=== PATIENT | male | born 1965 ===

== ENCOUNTER 2023-02-28 08:00 | Outpatient (CLI) | payer BC, OTHER ==
--- NOTE | 2023-03-01 12:37 | XRAY Report ---
PROCEDURE: Shoulder 2+V LT INDICATIONS: LEFT SHOULDER SPRAIN TECHNIQUE: 3 views of the shoulder were acquired. COMPARISON: None. FINDINGS: Bones: No fractures or dislocations. No suspicious bony lesions. Visualized ribs appear intact. Moderate degenerative changes of the left acromioclavicular and glenohumeral joints. Soft tissues: No suspicious soft tissue calcifications. Small amount of soft tissue calcifications overlying the superolateral left humeral head. The visualized lungs are within normal limits. IMPRESSION: No acute bony abnormality. Moderate osteoarthrosis of the left acromioclavicular and glenohumeral joints. Soft tissue calcifications over the superolateral left humeral head which may be secondary to chronic calcific rotator cuff tendinopathy. Reviewed by: Eddie James MD on 03/01/2023 12:36 PM PST Approved by: Eddie James MD on 03/01/2023 12:36 PM PST Station ID: [id number]
== END 2023-02-28 23:59 | disposition home or self-care (01) ==
LOC: DI.S 08:00
PROVIDERS: ATTEND Registered Nurse
DX: S43.492A Other sprain of left shoulder joint, initial encounter (principal); M79.89 Other specified soft tissue disorders

== ENCOUNTER 2023-03-20 08:00 | Outpatient (CLI) | payer OTHER, BC ==
--- NOTE | 2023-03-20 14:05 | XRAY Report ---
PROCEDURE: Shoulder 1 View LT INDICATIONS: LEFT SHOULDER PAIN, AXIAL VIEW ONLY TECHNIQUE: 1 views of the shoulder were acquired. COMPARISON: None. FINDINGS: Bones: Glenohumeral alignment is maintained. Possible Hill-Sachs deformity. Possible calcific tendino segundo. Degenerative changes. Soft tissues: No suspicious findings. IMPRESSION: Glenohumeral malalignment is maintained. There may be an impaction humeral Hill-Sachs deformity Reviewed by: Mike Hu MD on 03/20/2023 2:03 PM PST Approved by: Mike Hu MD on 03/20/2023 2:03 PM PST Station ID: [id number]
== END 2023-03-20 23:59 | disposition home or self-care (01) ==
LOC: DI.WOS 08:00
PROVIDERS: ATTEND Physician Assistant Surgical
DX: S43.492A Other sprain of left shoulder joint, initial encounter (principal)